=== PATIENT | female | born 1985 | race Asian ===

== ENCOUNTER 2017-12-19 23:45 | Emergency (ER) | payer BC ==
[~2017-12-19] VITALS: Ht 157.5 cm; Wt 70.3 kg
--- NOTE | 2017-12-20 00:01 | NUR ---
BIBSELF C/O GENERALIZE ABD PAIN SINCE 4PM. LAST BM 3PM, DENIES NV. NO SOB. A/OX4 VSS NAD. WILL CONTINUE TO MONITOR FOR ANY CHANGES
[2017-12-20] MEDS ORDERED: ONDANSETRON HCL/PF 4 MG/2 ML VIAL ONE (00:53)
[2017-12-20] MEDS ORDERED: HYDROMORPHONE INJ 2 MG/ML DISP.SYRIN ONE (00:54)
[2017-12-20] MEDS: HYDROMORPHONE INJ 2 MG/ML DISP.SYRIN IV ONE (01:03)
[2017-12-20] MEDS: ONDANSETRON HCL/PF 4 MG/2 ML VIAL IVP ONE (01:03)
--- NOTE | 2017-12-20 01:04 | NUR ---
BLOOD COLLECTED BY SHUTTLE [employer]UCK [employer]IVER
[2017-12-20 01:09] LABS: BASOPHILS % (AUTO) 0.3 % (0.0-2.0); EOSINOPHILS # (AUTO) 0.2 /CMM (0.0-0.7); EOSINOPHILS % (AUTO) 2.5 % (0.0-6.0); HEMATOCRIT 40 % (33-45); HEMOGLOBIN 13.4 g/dL (11.5-14.8); LYMPHOCYTES # (AUTO) 1.9 /CMM (0.8-4.8); LYMPHOCYTES % (AUTO) 20.9 % (20.0-44.0); MEAN CORPUSCULAR HEMOGLOBIN 29 PG (26.0-33.0); MEAN CORPUSCULAR HGB CONC 33 g/dl (31.0-36.0); MEAN CORPUSCULAR VOLUME 87 fL (82-100); MONOCYTES # (AUTO) 0.5 /CMM (0.1-1.30); MONOCYTES % (AUTO) 5.8 % (2.0-12.0); NEUTROPHILS # (AUTO) 6.3 /CMM (1.8-8.9); NEUTROPHILS % (AUTO) 70.5 % (43.0-81.0); PLATELET COUNT (AUTO) 306 /CMM (150-450); RDW COEFFICIENT OF VARIATION 12.5 (11.5-15.0); RED BLOOD CELL COUNT(AUTO) 4.63 MIL/uL (4.0-5.2); WHITE BLOOD COUNT (AUTO) 8.9 K/uL (4.3-11.0)
[2017-12-20 01:18] LABS: CALCIUM, SERUM 8.6 mg/dL (8.5-10.1); CREATININE 0.8 mg/dL (0.6-1.3); POTASSIUM 3.4 mmol/L (3.5-5.1)
[2017-12-20] MEDS ORDERED: IV NS 0.9% 250 ML IV ONE (01:23)
[2017-12-20] MEDS ORDERED: IOHEXOL-300 100 ML VIAL IV ONE (01:23)
[2017-12-20 01:24] LABS: ALBUMIN 3.8 g/dL (3.4-5.0); BILIRUBIN,DIRECT 0.1 mg/dL (0.0-0.2); BILIRUBIN,TOTAL 0.5 mg/dL (0.2-1.0); TOTAL PROTEIN, SERUM 7.8 g/dL (6.4-8.2)
[2017-12-20 03:40] VITALS: BP 137/80
== END 2017-12-20 03:44 | disposition home or self-care (01) ==
LOC: ER 23:47
DX: R10.9 Unspecified abdominal pain (principal)
CPT/HCPCS: 36415; 74160; 80048; 80076; 83690; 84703; 85025; 96374; 96375; 99285; A4606; J1170; J2405; J7050; Q9967; Z7610

== ENCOUNTER 2018-12-03 13:21 | Outpatient (CLI) | payer BC ==
[2018-12-03 17:25] LABS: APPEARANCE,URINE CLEAR (CLEAR); BILIRUBIN,URINE NEGATIVE (NEGATIVE); BLOOD, URINE 1+ Ery/uL (NEGATIVE); COLOR,URINE YELLOW (YELLOW); KETONES,URINE NEGATIVE (NEGATIVE); LEUKOCYTE ESTERASE ,URINE NEGATIVE (NEGATIVE); NITRITE, URINE NEGATIVE (NEGATIVE); PROTEIN,URINE NEGATIVE (NEGATIVE); UGLUCOSE NEGATIVE (NEGATIVE); UROBILINOGEN,URINE 0.2 EU/dL (0.2)
[2018-12-03 17:44] LABS: BASOPHILS % (AUTO) 0.3 % (0.0-2.0); EOSINOPHILS % (AUTO) 2.2 % (0.0-6.0); HEMATOCRIT 43 % (33-45); HEMOGLOBIN 14.4 g/dL (11.5-14.8); LYMPHOCYTES # (AUTO) 2.4 /CMM (0.8-4.8); LYMPHOCYTES % (AUTO) 22.4 % (20.0-44.0); MEAN CORPUSCULAR HGB CONC 33 g/dl (31.0-36.0); MEAN CORPUSCULAR VOLUME 89 fL (82-100); MONOCYTES # (AUTO) 0.7 /CMM (0.1-1.30); MONOCYTES % (AUTO) 6.7 % (2.0-12.0); NEUTROPHILS # (AUTO) 7.4 /CMM (1.8-8.9); NEUTROPHILS % (AUTO) 68.4 % (43.0-81.0); PLATELET COUNT (AUTO) 305 /CMM (150-450); RED BLOOD CELL COUNT(AUTO) 4.85 MIL/uL (4.0-5.2); WHITE BLOOD COUNT (AUTO) 10.8 K/uL (4.3-11.0)
[2018-12-03 17:53] LABS: URINE AMORPHOUS PHOSPHATES Many /HPF (None Seen)
[2018-12-03 18:02] LABS: BACTERIA,URINE Moderate /HPF (None Seen); SQUAMOUS EPITHELIAL CELL,UR Few /HPF (None Seen); WBC,URINE 0-2 /HPF (0-3)
[2018-12-04 12:11] LABS: RUBELLA ANTIBODIES, IGG 2.24 index (Immune >0.99)
== END 2018-12-03 23:59 | disposition home or self-care (01) ==
LOC: LAB 13:21
PROVIDERS: ATTEND Obstetrics & Gynecology
DX: Z34.90 Encounter for supervision of normal pregnancy, unspecified, unspecified trimester (principal); Z3A.00 Weeks of gestation of pregnancy not specified
CPT/HCPCS: 36415; 81000-TC; 84702-TC; 85025-TC; 86592; 86706; 86850-TC; 87086-TC

== ENCOUNTER 2019-02-23 13:27 | Outpatient (CLI) | payer BC ==
[2019-02-23 15:46] LABS: BASOPHILS % (AUTO) 0.4 % (0.0-2.0); EOSINOPHILS % (AUTO) 3.2 % (0.0-6.0); HEMATOCRIT 35 % (33-45); HEMOGLOBIN 11.8 g/dL (11.5-14.8); LYMPHOCYTES # (AUTO) 2.2 /CMM (0.8-4.8); LYMPHOCYTES % (AUTO) 19.1 % (20.0-44.0); MEAN CORPUSCULAR HGB CONC 33 g/dl (31.0-36.0); MEAN CORPUSCULAR VOLUME 89 fL (82-100); MONOCYTES # (AUTO) 0.7 /CMM (0.1-1.30); MONOCYTES % (AUTO) 6.1 % (2.0-12.0); NEUTROPHILS # (AUTO) 8.4 /CMM (1.8-8.9); NEUTROPHILS % (AUTO) 71.2 % (43.0-81.0); PLATELET COUNT (AUTO) 296 /CMM (150-450); RED BLOOD CELL COUNT(AUTO) 3.98 MIL/uL (4.0-5.2); WHITE BLOOD COUNT (AUTO) 11.7 K/uL (4.3-11.0)
== END 2019-02-23 23:59 | disposition home or self-care (01) ==
LOC: LAB 13:27
PROVIDERS: ATTEND Obstetrics & Gynecology
DX: Z33.1 Pregnant state, incidental (principal); N91.1 Secondary amenorrhea; E89.0 Postprocedural hypothyroidism; Z20.2 Contact with and (suspected) exposure to infections with a predominantly sexual mode of transmission; Q99.2 Fragile X chromosome
CPT/HCPCS: 36415; 83051; 84443-TC; 85025-TC; 86592; 86593; 86765; 86803; 86850-TC; 86900-TC; 87340; 87806

== ENCOUNTER 2019-05-06 08:23 | Outpatient (CLI) | payer BC ==
[2019-05-06 09:52] LABS: BASOPHILS % (AUTO) 0.4 % (0.0-2.0); EOSINOPHILS % (AUTO) 2.4 % (0.0-6.0); HEMATOCRIT 32 % (33-45); HEMOGLOBIN 10.6 g/dL (11.5-14.8); LYMPHOCYTES # (AUTO) 1.8 /CMM (0.8-4.8); LYMPHOCYTES % (AUTO) 18.6 % (20.0-44.0); MEAN CORPUSCULAR HGB CONC 34 g/dl (31.0-36.0); MEAN CORPUSCULAR VOLUME 89 fL (82-100); MONOCYTES # (AUTO) 0.6 /CMM (0.1-1.30); MONOCYTES % (AUTO) 6.6 % (2.0-12.0); NEUTROPHILS # (AUTO) 6.9 /CMM (1.8-8.9); PLATELET COUNT (AUTO) 292 /CMM (150-450); RED BLOOD CELL COUNT(AUTO) 3.55 MIL/uL (4.0-5.2); WHITE BLOOD COUNT (AUTO) 9.5 K/uL (4.3-11.0)
== END 2019-05-06 23:59 | disposition home or self-care (01) ==
LOC: LAB 08:23
PROVIDERS: ATTEND Obstetrics & Gynecology
DX: O99.810 Abnormal glucose complicating pregnancy (principal)
CPT/HCPCS: 36415; 82947-TC; 85025-TC; 86850-TC

== ENCOUNTER 2019-05-18 09:25 | Outpatient (CLI) | payer BC ==
[2019-05-18 10:12] LABS: GLUCOSE FASTING 83 mg/dL (74-106)
== END 2019-05-18 23:59 | disposition home or self-care (01) ==
LOC: LAB 09:25
PROVIDERS: ATTEND Obstetrics & Gynecology
DX: O99.810 Abnormal glucose complicating pregnancy (principal); Z3A.00 Weeks of gestation of pregnancy not specified
CPT/HCPCS: 36415; 82951-TC; 82952-TC

== ENCOUNTER 2024-12-31 02:06 | Emergency (ER) | payer BC ==
[~2024-12-31] VITALS: Ht 157.5 cm; Wt 70.3 kg
[2024-12-31] MEDS ORDERED: HYDROCODONE/APAP 5/325MG TABLET ONE (02:21)
[2024-12-31] MEDS: HYDROCODONE/APAP 5/325MG TABLET PO ONE (02:22)
[2024-12-31] MEDS ORDERED: KETO10TA2 PO (05:47)
[2024-12-31] MEDS ORDERED: TRAM50TA2 PO (05:47)
[2024-12-31 06:07] VITALS: BP 125/81; TEMP 98.5; O2SAT 98
== END 2024-12-31 06:08 | disposition home or self-care (01) ==
LOC: ER 02:15
DX: M25.551 Pain in right hip (principal); M25.552 Pain in left hip; M25.511 Pain in right shoulder; M79.651 Pain in right thigh; R20.0 Anesthesia of skin; W01.0XXA Fall on same level from slipping, tripping and stumbling without subsequent striking against object, initial encounter; Y93.89 Activity, other specified; Y92.89 Other specified places as the place of occurrence of the external cause; Y99.8 Other external cause status
CPT/HCPCS: 73502; 73552